=== PATIENT | male | born 1990 | race Caucasian/White ===

== ENCOUNTER → 2017-08-21 | Outpatient (CLI) | payer BC | LOC: M OUTALCOH 08:46 | DX: F10.10 Alcohol abuse, uncomplicated (principal); F12.10 Cannabis abuse, uncomplicated ==

== ENCOUNTER 2017-08-29 10:19 | Outpatient (RCR) | payer BC | END 2017-09-25 | LOC: M OUTALCOH 09-11 16:00 | DX: F10.10 Alcohol abuse, uncomplicated (principal); F12.10 Cannabis abuse, uncomplicated; F17.200 Nicotine dependence, unspecified, uncomplicated ==

== ENCOUNTER 2017-09-26 15:36 | Outpatient (RCR) | payer BC | END 2017-10-23 | LOC: M OUTALCOH 15:36 | DX: F10.10 Alcohol abuse, uncomplicated (principal); F12.10 Cannabis abuse, uncomplicated; F17.200 Nicotine dependence, unspecified, uncomplicated ==

== ENCOUNTER → 2019-10-07 | Outpatient (CLI) | payer OTHER ==
[2019-10-07 10:09] LABS: HEMATOCRIT 39.7 % (42.0-52.0); HEMOGLOBIN 13.3 g/dl (13.5-17.5); MEAN CORPUSCULAR HEMOGLOBIN 30.7 pg (27.0-33.0); MEAN CORPUSCULAR HGB CONC 33.5 g/dl (32.0-36.5); MEAN CORPUSCULAR VOLUME 91.7 fl (80.0-96.0); PLATELET COUNT, AUTOMATED 325 10^3/uL (150-450); RED BLOOD COUNT 4.33 10^6/uL (4.30-6.10); WHITE BLOOD COUNT 8.1 10^3/uL (4.0-10.0)
[2019-10-07 10:36] LABS: ALBUMIN 3.6 GM/DL (3.2-5.2); ALT/SGPT 422 U/L (12-78); BILIRUBIN,TOTAL 0.3 MG/DL (0.2-1.0); BLOOD UREA NITROGEN 25 MG/DL (7-18); CALCIUM LEVEL 9.3 MG/DL (8.5-10.1); CARBON DIOXIDE LEVEL 31 MEQ/L (21-32); CHLORIDE LEVEL 105 MEQ/L (98-107); CREATININE FOR GFR 0.95 MG/DL (0.70-1.30); GLOMERULAR FILTRATION RATE > 60.0 (>60); GLUCOSE, FASTING 109 MG/DL (70-100); POTASSIUM SERUM 4.3 MEQ/L (3.5-5.1); SODIUM LEVEL 140 MEQ/L (136-145); TOTAL PROTEIN 6.8 GM/DL (6.4-8.2)
[2019-10-07 11:12] LABS: HEPATITIS B SURFACE ANTIGEN NEGATIVE (NEGATIVE)
[2019-10-07 11:40] LABS: HIV 1&2 SCREEN CENTAUR NEGATIVE (NEGATIVE)
[2019-10-07 11:51] LABS: CHLAMYDIA DNA AMPLIFICATION NEGATIVE (NEGATIVE); GC DNA AMPLIFICATION NEGATIVE (NEGATIVE)
[2019-10-07 12:01] LABS: HEPATITIS C VIRUS ABY INDEX > 11.0 INDEX (<0.8)
--- NOTE | 2019-10-07 12:13 | ECGEPIP ---
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
== END ==
LOC: M LAB 09:21
PROVIDERS: ATTEND Family Medicine
DX: F11.20 Opioid dependence, uncomplicated (principal)

== ENCOUNTER 2020-01-08 02:23 | Emergency (ER) | payer OTHER, SELFPAY ==
[~2020-01-08] VITALS: Ht 175.3 cm; Wt 59.1 kg
[2020-01-08 02:23] VITALS: BP 121/76
[2020-01-08] MEDS ORDERED: SULF1TAB93 (02:31)
--- NOTE | 2020-01-08 05:52 | REP ---
Clinical: Trauma. Technique: AP, lateral views of the left forearm. Findings: Evidence for prior fracture and fixation involving the humeral condyle. The osseous structures and joint spaces are otherwise intact and normal. There is no evidence for acute fracture or dislocation. Surrounding soft tissues are unremarkable. No subcutaneous emphysema or radiodense foreign body. Impression: No acute fracture or dislocation. Electronically Signed by Elías Blue MD 01/08/2020 05:42 A
== END 2020-01-08 03:10 | disposition home or self-care (01) ==
LOC: M ED 02:23
DX: S50.12XA Contusion of left forearm, initial encounter (principal); X58.XXXA Exposure to other specified factors, initial encounter; Y92.89 Other specified places as the place of occurrence of the external cause; Y99.0 Civilian activity done for income or pay

== ENCOUNTER 2020-04-25 21:15 | Emergency (ER) | payer OTHER ==
[~2020-04-25] VITALS: Ht 175.3 cm; Wt 59.1 kg
[2020-04-25 21:15] VITALS: BP 123/76
[~2020-04-25 21:15] MED LIST: SULF1TAB93
[2020-04-26] MEDS ORDERED: MOBI4TAB PO (00:29)
[2020-04-26] MEDS ORDERED: ZANA4TAB PO (00:36)
--- NOTE | 2020-05-20 15:10 | REP ---
RIGHT HIP SERIES CLINICAL: Hip pain. TECHNIQUE: AP and five lateral views of the right hip. FINDINGS: Osseous structures, joint spaces, and surrounding soft tissues are normal and age appropriate. No acute fracture or dislocation. No arthritic changes. No subcutaneous emphysema or foreign body. IMPRESSION: Normal right hip series. MTDD
== END 2020-04-26 00:51 | disposition home or self-care (01) ==
LOC: M ED 21:15
DX: M25.551 Pain in right hip (principal); F17.210 Nicotine dependence, cigarettes, uncomplicated

== ENCOUNTER 2021-05-29 21:05 | Inpatient (IN) | payer OTHER ==
[~2021-05-29] VITALS: Ht 175.3 cm; Wt 63.0 kg
[~2021-05-29 21:05] MED LIST changes: +BACTDSTA; +MOBI4TAB PO; -SULF1TAB93; +ZANA4TAB PO
[2021-05-29 21:44] LABS: BASO # 0.2 10^3/uL (0.0-0.2); BASO % 0.5 % (0.0-1.0); EOS % 0.1 % (0.0-3.0); HEMATOCRIT 43.3 % (42.0-52.0); HEMOGLOBIN 14.9 g/dl (13.5-17.5); LYMPH # 1.8 10^3/uL (1.5-5.0); LYMPH % 4.7 % (24.0-44.0); MEAN CORPUSCULAR HEMOGLOBIN 31.2 pg (27.0-33.0); MEAN CORPUSCULAR HGB CONC 34.4 g/dl (32.0-36.5); MEAN CORPUSCULAR VOLUME 90.6 fl (80.0-96.0); MONO # 1.6 10^3/uL (0.0-0.8); MONO % 4.2 % (2.0-8.0); NEUTROPHILS # 32.7 10^3/uL (1.5-8.5); NEUTROPHILS % 87.2 % (36.0-66.0); PLATELET COUNT, AUTOMATED 364 10^3/uL (150-450); RED BLOOD COUNT 4.78 10^6/uL (4.30-6.10)
[2021-05-29 21:46] LABS: WHITE BLOOD COUNT 37.5 10^3/uL (4.0-10.0)
[2021-05-29] MEDS ORDERED: NS 1,000 ML IV ONE (21:55)
[2021-05-29] MEDS ORDERED: ISOVUE-370 76% 100ML VIAL As Ordered ONE (21:58)
[2021-05-29 22:18] LABS: ACETAMINOPHEN LEVEL < 2.0 UG/ML (10.0-30.0); ALBUMIN 4.1 GM/DL (3.2-5.2); ALT/SGPT 192 U/L (12-78); BILIRUBIN,DIRECT 0.1 MG/DL (0.0-0.2); BILIRUBIN,TOTAL 0.4 MG/DL (0.2-1.0); CPK CREATINE PHOSPHOKINASE 149 U/L (39-308); ETHYL ALCOHOL (ETHANOL) < 0.003 % (0.000-0.010); SALICYLATE LEVEL < 1.7 MG/DL (5.0-30.0); TOTAL PROTEIN 7.9 GM/DL (6.4-8.2)
[2021-05-29] MEDS ORDERED: ONDANSETRON 4MG/2ML VIAL IV ONE (22:20)
--- NOTE | 2021-05-29 23:50 | REPVR ---
PROCEDURE INFORMATION: Exam: XR Chest Exam date and time: 05/29/2021 9:43 PM Age: 31 years old Clinical indication: Drug overdose. Status post cardiopulmonary resuscitation. TECHNIQUE: Imaging protocol: XR of the chest. Views: 1 view. COMPARISON: CT ANGIO CHEST 05/29/2021 10:07:15 PM FINDINGS: Lungs: There are ground-glass opacities in the right lower lobe and left upper lobe and ground-glass opacities and patchy airspace consolidation in the left lower lobe, which are better appreciated in the CTA chest on 05/29/2021. Pleural spaces: Unremarkable. No pleural effusion. No pneumothorax. Heart/Mediastinum: Unremarkable. No cardiomegaly. Bones/joints: There are acute buckle fractures involving the anterior and anterolateral portions of the left 2nd and 3rd ribs. There is also an acute nondisplaced fracture involving the anterior cortex of the sternum. There are healing fractures of the right lateral 10th rib and right posterolateral 11th rib. These findings are better appreciated in the CTA chest on 05/29/2021. IMPRESSION: 1. Ground-glass opacities in the right lower lobe and left upper lobe and ground-glass opacities and patchy airspace consolidation in the left lower lobe, which are better appreciated in the CTA chest on 05/29/2021 and may be infectious or inflammatory in nature. Aspiration pneumonia should be considered. 2. Acute nondisplaced fracture involving the anterior cortex of the sternum, which is better appreciated in the CTA chest on 05/29/2021. 3. Acute buckle fractures involving the anterior and anterolateral portions of the left 2nd and 3rd ribs, which are better appreciated in the CTA chest on 05/29/2021. 4. Healing fractures of the right lateral 10th rib and right posterolateral 11th rib, which are better appreciated in the CTA chest on 05/29/2021. Electronically signed by: Hamlet Araujo On 05/29/2021 23:49:45 PM
--- NOTE | 2021-05-29 23:51 | REPVR ---
PROCEDURE INFORMATION: Exam: CTA Chest With Contrast Exam date and time: 05/29/2021 10:35 PM Age: 31 years old Clinical indication: Sternal or substernal pain; Additional info: Chest pain; S/P cardiopulmonary resuscitation TECHNIQUE: Imaging protocol: Computed tomographic angiography of the chest with contrast. 3D rendering (Not supervised by radiologist): MIP and/or 3D reconstructed images were created by the technologist. Radiation optimization: All CT scans at this facility use at least one of these dose optimization techniques: automated exposure control; mA and/or kV adjustment per patient size (includes targeted exams where dose is matched to clinical indication); or iterative reconstruction. Contrast material: ISOVUE 370; Contrast volume: 75 ml; Contrast route: INTRAVENOUS (IV); COMPARISON: CR PORTABLE CHEST X-RAY 05/29/2021 9:32 PM FINDINGS: Pulmonary arteries: No pulmonary embolism is identified. Aorta: The thoracic aorta is intact and patent. There is no thoracic aortic aneurysm, pseudoaneurysm, penetrating atherosclerotic ulcer, intramural hematoma, or dissection. Great vessels off aortic arch: The brachiocephalic artery, imaged proximal portions of the common carotid arteries, imaged proximal portions of the vertebral arteries, and subclavian arteries are intact. No stenosis or occlusion of these vessels is noted. Trachea: Normal. Bronchial tree: Normal. Lungs: There are ground-glass opacities in the right lower lobe and left upper lobe. There are ground-glass opacities and patchy airspace consolidation in the left lower lobe. Pleural spaces: Normal. No pneumothorax or pleural effusion. Heart: No cardiomegaly or pericardial effusion. The ratio of the diameter of the right ventricle to the diameter of the left ventricle measures less than 1, which is within normal limits and there is no CT evidence for a right ventricular strain. Mediastinal space: No mediastinal mass, fluid collection, or pneumomediastinum. Incidental note is made of residual thymic tissue in the anterior mediastinum. Lymph nodes: Normal. No enlarged lymph nodes. Diaphragm: Intact. Liver: The attenuation of the liver is more than 40 Hounsfield units lower in attenuation compared to the spleen, which is compatible with fatty liver infiltration. No liver lesion is identified. The contour of the liver is smooth. No hepatomegaly is noted. Gallbladder and bile ducts: No calcified gallstones are noted. No gallbladder wall thickening, pericholecystic fluid, or pericholecystic inflammatory changes are identified. No dilation of the bile ducts is noted. No calcified stones are seen in the common bile duct. Spleen: The spleen is heterogeneous in appearance, which is likely secondary to the arterial timing of the contrast bolus. No splenomegaly. Incidental note is made of a small accessory spleen. Adrenal glands: Normal. No adrenal mass is noted. Kidneys and ureters: There is left renal cortical scarring. No hydronephrosis is noted. The inferior portion of the right kidney was not imaged. Bones/joints: There are acute buckle fractures involving the anterior and anterolateral portions of the left 2nd and 3rd ribs. There is also an acute nondisplaced fracture involving the anterior cortex of the sternum. There are healing fractures of the right lateral 10th rib and right posterolateral 11th rib. There is a chronic ununited fracture of the right transverse process L2. No other fractures are noted. Soft tissues: Unremarkable. IMPRESSION: 1. No pulmonary embolism. 2. Ground-glass opacities in the right lower lobe, left upper lobe, and left lower lobe and patchy consolidation in the left lower lobe, which may be infectious or inflammatory in nature. Aspiration pneumonia should be considered. 3. Acute nondisplaced fracture involving the anterior cortex of the sternum. 4. Acute buckle fractures involving the anterior and anterolateral portions of the left 2nd and 3rd ribs. 5. Healing fractures of the right lateral 10th rib and right posterolateral 11th rib. 6. 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 7. Fatty liver. Electronically signed by: Hamlet Araujo On 05/29/2021 23:50:37 PM
[2021-05-30] MEDS ORDERED: HOME MED LIST COMPLETE! XX SCH (00:10)
[2021-05-30] MEDS ORDERED: LevoFLOXacin IV 750 MG in IV 1 EA IV ONE (00:40)
[2021-05-30] MEDS ORDERED: PIPERACILLIN/TAZOBACTAM SOD 4.5 GM in D5W MINI-BAG PLUS 50 ML IV ONE (00:40)
[2021-05-30] MEDS ORDERED: MAALOX 30 ML SUSP *UDC PO PRN (00:55)
[2021-05-30] MEDS ORDERED: MOM 30ML SUSPENSION UDC PO PRN (00:55)
[2021-05-30] MEDS ORDERED: ACETAMINOPHEN TAB 650MG DOSE (2X325MG) PO PRN (00:55)
[2021-05-30 01:44] LABS: RSV AMPLIFICATION NEGATIVE (NEGATIVE)
--- NOTE | 2021-05-30 01:59 | HPEPDOC ---
[facility] Medical History & Physical Date of Admission May 30, 2021 Date of Service: May 30, 2021 History and Physical CHIEF COMPLAINT: chest wall pain HISTORY OF PRESENT ILLNESS: Patient is a 31-year-old male with a history of opiate use disorder in the past, brought in by EMS after 20 minutes of CPR in the field after patient's parents found him unresponsive in their home. Patient states he snorted heroin after he had been abstinent for approximately 1 year. Patient stated to ER staff upon waking up that he wished he . At this time patient reports left-sided chest pain with deep inspiration. Patient chest x-ray showed consolidation in the left lower lobe concerning for aspiration pneumonia. Also seen on x-ray ER nondisplaced fracture involving the anterior cortex of the sternum, as well as acute buckle fractures involving anterior anterolateral portions of left second and third ribs. He has chronic healing rib fractures of the right lateral 10th rib and right posterolateral 11th rib. These fractures are redemonstrated on CT angiogram of the chest. Groundglass opacities are seen in the right lower lobe left upper lobe and left lower lobe along with patchy consolidation left lower lobe concerning for aspiration pneumonia. Patient WBC of 37.5 with neutrophil predominance. Patient is afebrile but has a tachycardia to 110. BP is elevated to 140/80 with a saturation of 90% room air. Patient admitted to hospitalist service for pain control as well as treatment of aspiration pneumonia. He will be given a one-to-one sitter for suicidal intent concerns. Even tachycardia and left-sided chest wall pain and echo will be performed to rule out cardiac contusion. PAST MEDICAL HISTORY: opiate use disorder PAST SURGICAL HISTORY: numerous orthopedic surgeries to repair fractures in bilateral upper extremities appendectomy SOCIAL HISTORY: hx of opiate use disorder, including injection denies smoking, denies etoh use lives with parents FAMILY HISTORY: reviewed with patient, no pertinent history reported ALLERGIES: Please see below. REVIEW OF SYSTEMS: 10 point ROS conducted, relevant findings are noted in HPI HOME MEDICATIONS: Please see below. PHYSICAL EXAMINATION: VITAL SIGNS: please see below General: NAD, comfortable HEENT: PERRLA, EOMI, sclerae clear Neck: supple, normal ROM, no JVD Respiratory: lungs CTAB, no wheeze, no rales, no crackles CVS: RRR, normal S1, S2, no murmurs Abdo: soft, no masses, no hepatosplenomegaly, BS+, no rebound tenderness Extremities: no edema, pulses 2+ MSK: L chest wall overlying L 3rd rib, no joint deformities, normal ROM Neuro: no focal neuro deficits, moving all 4 extremities, CN2-12 intact. Strength 5/5 in all 4 extremities. No nystagmus. Psych: calm, cooperative, AAO x 3 LABORATORY DATA: See below. IMAGING: CTA Chest (05/29/21): 1. No pulmonary embolism. 2. Ground-glass opacities in the right lower lobe, left upper lobe, and left lower lobe and patchy consolidation in the left lower lobe, which may be infectious or inflammatory in nature. Aspiration pneumonia should be considered. 3. Acute nondisplaced fracture involving the anterior cortex of the sternum. 4. Acute buckle fractures involving the anterior and anterolateral portions of the left 2nd and 3rd ribs. 5. Healing fractures of the right lateral 10th rib and right posterolateral 11th rib. 6. 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 7. Fatty liver. CXR (05/29/21): 1. Ground-glass opacities in the right lower lobe and left upper lobe and ground-glass opacities and patchy airspace consolidation in the left lower lobe, which are better appreciated in the CTA chest on 05/29/2021 and may be infectious or inflammatory in nature. Aspiration pneumonia should be considered. 2. Acute nondisplaced fracture involving the anterior cortex of the sternum, which is better appreciated in the CTA chest on 05/29/2021. 3. Acute buckle fractures involving the anterior and anterolateral portions of the left 2nd and 3rd ribs, which are better appreciated in the CTA chest on 05/29/2021. 4. Healing fractures of the right lateral 10th rib and right posterolateral 11th rib, which are better appreciated in the CTA chest on 05/29/2021. MICROBIOLOGY: Please see below. ASSESSMENT: Patient is a 31-year-old male with a history of opiate use disorder in the past, brought in by EMS after 20 minutes of CPR in the field after patient's parents found him unresponsive in their home. Patient admitted for pain management for rib fractures as well as aspiration pneumonia. Will obtain echo to rule out cardiac contusion. . PLAN: Heroin overdose: s/p narcan in field. s/p 20 min CPR. Monitor vitals. continuous cardiac monitoring. administrative services director consulted. L chest wall pain/trauma: rib fractures noted on CXR and CT. No signs of pulmonary contusion on imaging. ER d/w Dr. Portillo. Recommending incentive spiromertry, antibiotics and pain control. Sinus tachycardia: EKG showing LBBB. Chest pain is MSK in nature 2/2 rib fx. Obtain 2D echo to r/o cardiac contusion. Trend troponins. Aspiration pneumonia in setting of drug overdose: numerous opacities on CT imaging. WBC 37.5. Given levaquin and zosyn in ER. Continue same regimen. Check blood cultures. Check procal. Tylenol prn for fevers. c/w IS. Carla burns. Suicidal ideation: 1:1 sitter. Day team to consult psychiatry in AM. DVT ppx: SCDs. TEDs. Vital Signs Vital Signs Date Time Temp Pulse Resp B/P (MAP) Pulse Ox O2 Delivery O2 Flow Rate FiO2 05/30/21 00:35 110 95 05/30/21 00:30 16 146/77 (100) Room Air 05/29/21 21:35 98.0 Laboratory Data Labs 24H Laboratory Tests 2 05/29/21 21:21: Immature Granulocyte % (Auto) 3.3H, Neutrophils (%) (Auto) 87.2H, Lymphocytes (%) (Auto) 4.7L, Monocytes (%) (Auto) 4.2, Eosinophils (%) (Auto) 0.1, Basophils (%) (Auto) 0.5, Neutrophils # (Auto) 32.7H, Lymphocytes # (Auto) 1.8, Monocytes # (Auto) 1.6H, Eosinophils # (Auto) 0.0, Basophils # (Auto) 0.2, Nucleated Red Blood Cells % (auto) 0.0, Total Bilirubin 0.4, Direct Bilirubin 0.1, Aspartate Amino Transf (AST/SGOT) 86H, Alanine Aminotransferase (ALT/SGPT) 192H, Alkaline Phosphatase 133H, Total Creatine Kinase 149, Total Protein 7.9, Albumin 4.1, Albumin/Globulin Ratio 1.1, Thyroid Stimulating Hormone (TSH) 1.470, Salicylates Level < 1.7L, Acetaminophen Level < 2.0L, Ethyl Alcohol Level < 0.003 05/29/21 21:47: POC Glucose (Misc Panel) 220H, POC Sodium (Misc Panel) 139, POC Potassium (Misc Panel) 4.3, POC Chloride (Misc Panel) 104, POC Total CO2 (Misc Panel) 23.0, POC Blood Urea Nitrogen (Misc Panel 28H, POC Ionized Calcium (Misc Panel) 4.4L, POC Creatinine (Misc Panel) 1.2, POC Hematocrit (Misc Panel) 40.0 05/30/21 00:06: CBC/BMP Laboratory Tests 05/29/21 21:21 Home Medications No Active Prescriptions or Reported Meds Allergies Coded Allergies: No Known Allergies (Verified , 03/01/03) DOMITILA LARES MD May 30, 2021 01:59
[2021-05-30] MEDS ORDERED: BENZONATATE 100MG CAPSULE PO PRN (02:00)
[2021-05-30 02:16] LABS: TROPONIN I < 0.02 NG/ML (< 0.10)
[2021-05-30 02:26] VITALS: BP 146/71
[2021-05-30 03:45] LABS: BASO % 0.1 % (0.0-1.0); HEMATOCRIT 37.8 % (42.0-52.0); HEMOGLOBIN 13.1 g/dl (13.5-17.5); LYMPH % 3.9 % (24.0-44.0); MEAN CORPUSCULAR HEMOGLOBIN 31.2 pg (27.0-33.0); MEAN CORPUSCULAR HGB CONC 34.7 g/dl (32.0-36.5); MONO # 1.3 10^3/uL (0.0-0.8); MONO % 5.4 % (2.0-8.0); NEUTROPHILS # 22.1 10^3/uL (1.5-8.5); NEUTROPHILS % 90.2 % (36.0-66.0); PLATELET COUNT, AUTOMATED 288 10^3/uL (150-450); WHITE BLOOD COUNT 24.5 10^3/uL (4.0-10.0)
[2021-05-30 05:30] VITALS: BP 124/58
[2021-05-30 05:35] LABS: AMPHETAMINES LEVEL URINE NEGATIVE (NEGATIVE); BARBITURATES URINE NEGATIVE (NEGATIVE); BENZODIAZEPINES URINE NEGATIVE (NEGATIVE); CANNABINOIDS URINE POSITIVE (NEGATIVE); COCAINE METABOLITE URINE NEGATIVE (NEGATIVE); METHADONE URINE NEGATIVE (NEGATIVE); OPIATES URINE POSITIVE (NEGATIVE); PHENCYCLIDINE URINE NEGATIVE (NEGATIVE)
[2021-05-30 05:45] LABS: ALBUMIN 3.8 GM/DL (3.2-5.2); ALT/SGPT 167 U/L (12-78); BILIRUBIN,TOTAL 0.6 MG/DL (0.2-1.0); BLOOD UREA NITROGEN 20 MG/DL (7-18); CALCIUM LEVEL 8.7 MG/DL (8.5-10.1); CARBON DIOXIDE LEVEL 22 MEQ/L (21-32); CHLORIDE LEVEL 107 MEQ/L (98-107); CREATININE FOR GFR 1.06 MG/DL (0.70-1.30); GLOMERULAR FILTRATION RATE > 60.0 (>60); GLUCOSE, FASTING 124 MG/DL (70-100); MAGNESIUM LEVEL 1.9 MG/DL (1.8-2.4); POTASSIUM SERUM 4.4 MEQ/L (3.5-5.1); SODIUM LEVEL 141 MEQ/L (136-145); TOTAL PROTEIN 7.2 GM/DL (6.4-8.2); TROPONIN I 0.04 NG/ML (< 0.10)
[2021-05-30] MEDS: PIPERACILLIN/TAZOBACTAM SOD 4.5 GM in D5W MINI-BAG PLUS 50 ML IV SCH ×4 (07:40→23:35)
[2021-05-30] MEDS: PERCOCET 5MG/325MG TAB PO PRN ×2 (07:52→23:36)
[2021-05-30 08:01] VITALS: BP 131/75
[2021-05-30 08:39] LABS: NT-PRO BNP 173 PG/ML (<125)
[2021-05-30 12:00] VITALS: BP 126/73
[2021-05-30 16:13] VITALS: BP 123/73
--- NOTE | 2021-05-30 16:55 | IPNPDOC ---
Date Seen The patient was seen on 05/30/21. Progress Note SUBJECTIVE: Awake alert oriented 3. Denies homicidal or suicidal ideation prior to this event. Will reach out to psychiatry to discuss case. Denies chest pain, shortness of breath and is unremarkable OBJECTIVE: VITAL SIGNS: Please see below PHYSICAL EXAMINATION: VITAL SIGNS: please see below General: NAD, comfortable sitting up in bed HEENT: PERRLA, EOMI, sclerae clear Neck: supple, normal ROM, no JVD Respiratory: lungs CTAB, no wheeze, no rales, no crackles CVS: RRR, normal S1, S2, no murmurs Abdo: soft, no masses, no hepatosplenomegaly, BS+, no rebound tenderness Extremities: no edema, pulses 2+ MSK: L chest wall overlying L 3rd rib, pain on palpation of sternum Neuro: no focal neuro deficits, moving all 4 extremities, CN2-12 intact. Strength 5/5 in all 4 extremities. No nystagmus. Psych: calm, cooperative, AAO x 3 CURRENT MEDICATIONS: Please see below LABORATORY DATA: Please see below IMAGING: no new MICRO: Blood cultures pending x 2 sets Sputum cx ordered ASSESSMENT: 31-year-old male admitted for heroin overdose, left wall trauma/rib fractures, aspiration PNA, suicidal ideation. PLAN: 1. Heroin overdose s/p narcan -Awake alert, oriented 3 and cooperative. Eating well and ambulating. -No events on telemetry overnight -Patient states he does not use regularly, that he overindulged an overdose this one time -No signs or symptoms of withdrawal, monitor closely. 2. L chest wall pain/trauma with rib fractures, nondisplaced sternal fracture -C/w incentive spiromertry, pain control PRN 3. Aspiration pneumonia in setting of drug overdose -Numerous opacities on CT imaging -Afebrile, WBC 37.5K--> 24K -C/w levaquin , zosyn, IS, Tylenol prn for fevers. -F/u blood cultures, procal, sputum culture if able to produce 4. Transaminitis likely 2/2 to drug abuse but cannot r/o hepatitis with drug use -AST/ALT incr -Monitor with CMP, hepatitis panel 5. LBBB on ECG -With hx of heroin use, consider underlying cardiac issues -F/u echo 6. Sinus tachycardia likely 2/2 to overdose, dehydration- resolved -HR improved -ECG LBBB -C/w IVFs until 05/30/21 -If returns consider uncontrolled pain vs. withdrawl -F/u echocardiogram 7. Suicidal ideation -Psych consulted. -C/w 1:1 sitter. 8. DVT ppx -Lovenox DISPOSITION: Psych consulted. Plan undetermined for discharge at this time. VS, I&O, 24H, Fishbone Vital Signs/I&O Vital Signs Date Time Temp Pulse Resp B/P (MAP) Pulse Ox O2 Delivery O2 Flow Rate FiO2 05/30/21 16:13 98.7 73 16 123/73 (90) 91 Room Air I&O- Last 24 Hours up to 6 AM 05/30/21 06:00 Intake Total 1250 ml Output Total 800 ml Balance 450 ml Laboratory Data 24H LABS Laboratory Tests 2 05/29/21 21:21: Immature Granulocyte % (Auto) 3.3H, Neutrophils (%) (Auto) 87.2H, Lymphocytes (%) (Auto) 4.7L, Monocytes (%) (Auto) 4.2, Eosinophils (%) (Auto) 0.1, Basophils (%) (Auto) 0.5, Neutrophils # (Auto) 32.7H, Lymphocytes # (Auto) 1.8, Monocytes # (Auto) 1.6H, Eosinophils # (Auto) 0.0, Basophils # (Auto) 0.2, Nucleated Red Blood Cells % (auto) 0.0, Total Bilirubin 0.4, Direct Bilirubin 0.1, Aspartate Amino Transf (AST/SGOT) 86H, Alanine Aminotransferase (ALT/SGPT) 192H, Alkaline Phosphatase 133H, Total Creatine Kinase 149, Troponin I < 0.02, Total Protein 7.9, Albumin 4.1, Albumin/Globulin Ratio 1.1, Thyroid Stimulating Hormone (TSH) 1.470, Salicylates Level < 1.7L, Acetaminophen Level < 2.0L, Ethyl Alcohol Level < 0.003 05/29/21 21:47: POC Glucose (Misc Panel) 220H, POC Sodium (Misc Panel) 139, POC Potassium (Misc Panel) 4.3, POC Chloride (Misc Panel) 104, POC Total CO2 (Misc Panel) 23.0, POC Blood Urea Nitrogen (Misc Panel 28H, POC Ionized Calcium (Misc Panel) 4.4L, POC Creatinine (Misc Panel) 1.2, POC Hematocrit (Misc Panel) 40.0 05/30/21 00:06: Coronavirus (COVID-19)(PCR) NEGATIVE, Influenza Type A (RT-PCR) NEGATIVE, Influenza Type B (RT-PCR) NEGATIVE, Respiratory Syncytial Virus (PCR) NEGATIVE 05/30/21 03:36: Immature Granulocyte % (Auto) 0.4, Neutrophils (%) (Auto) 90.2H, Lymphocytes (%) (Auto) 3.9L, Monocytes (%) (Auto) 5.4, Eosinophils (%) (Auto) 0.0, Basophils (%) (Auto) 0.1, Neutrophils # (Auto) 22.1H, Lymphocytes # (Auto) 1.0L, Monocytes # (Auto) 1.3H, Eosinophils # (Auto) 0.0, Basophils # (Auto) 0.0, Nucleated Red Blood Cells % (auto) 0.0, Total Bilirubin 0.6, Aspartate Amino Transf (AST/SGOT) 64H, Alanine Aminotransferase (ALT/SGPT) 167H, Alkaline Phosphatase 106, Trop onin I 0.04#, Total Protein 7.2, Albumin 3.8, Albumin/Globulin Ratio 1.1, Anion Gap 12, Glomerular Filtration Rate > 60.0, Lactic Acid Level 1.5, Calcium Level 8.7, Magnesium Level 1.9, QC-Orn-L-Type Natriuretic Peptide 173H 05/30/21 03:49: Urine Opiates Screen POSITIVEH, Urine Methadone Screen NEGATIVE, Urine Barbiturates Screen NEGATIVE, Urine Phencyclidine Screen NEGATIVE, Urine Amphetamines Screen NEGATIVE, Urine Benzodiazepines Screen NEGATIVE, Urine Cocaine Metabolite Screen NEGATIVE, Urine Cannabinoids Screen POSITIVEH CBC/BMP Laboratory Tests 05/29/21 21:21 05/30/21 03:36 Microbiology Microbiology 05/30/21 Blood Culture, Received Pending 05/30/21 Blood Culture, Received Pending Current Medications Current Medications Medications (Trade) Dose Ordered Sig/Justus Route PRN Reason Start Time Stop Time Status Last Admin Dose Admin Acetaminophen (Tylenol Tab) 650 mg Q4H PRN PO MILD PAIN or TEMP > 101 05/30/21 00:55 Al Hydrox/Mg Hydrox/Simethicone (Mylanta) 30 ml DAILY PRN PO DYSPEPSIA 05/30/21 00:55 Benzonatate (Tessalon Perles) 100 mg TIDP PRN PO COUGH 05/30/21 02:00 Home Med (Home Med List Complete!) ASDIRECTED XX 05/30/21 00:10 05/30/21 00:08 DC Levofloxacin 750 mg/IV Miscellaneous Supplies 150 ml @ 100 mls/hr Q24H IV 05/30/21 21:00 Magnesium Hydroxide (Milk Of Magnesia) 30 ml DAILY PRN PO CONSTIPATION 05/30/21 00:55 Oxycodone/ Acetaminophen (Percocet 5mg/ 325mg Tablet) 1 tab Q6HP PRN PO MODERATE PAIN (PS 5-7) 05/30/21 01:40 05/30/21 07:52 Piperacillin Sod/ Tazobactam Sod 4.5 gm/Dextrose 50 ml @ 50 mls/hr Q6H IV 05/30/21 06:00 05/30/21 12:46 Allergies Coded Allergies: No Known Allergies (Verified , 03/01/03) Zoraida Santos MD May 30, 2021 16:55
[2021-05-30 17:54] LABS: HEPATITIS B SURFACE ANTIGEN NEGATIVE (NEGATIVE)
[2021-05-30 18:22] LABS: HEPATITIS B CORE ANTIBODY IGM NEGATIVE (NEGATIVE)
[2021-05-30 18:24] LABS: HEPATITIS A ANTIBODY IGM NEGATIVE (NEGATIVE)
[2021-05-30 18:48] LABS: HEPATITIS C VIRUS ABY INDEX > 11.0 INDEX (<0.8)
[2021-05-30 20:00] VITALS: BP 134/88
--- NOTE | 2021-05-30 20:48 | ECHO ---
ECHOCARDIOGRAM DATE OF PROCEDURE: 05/30/2021 Age: Gender: Height: 175 cm Weight: 64 kg REFERRING PHYSICIAN: Dr. Varma INDICATION: Chest pain, history of cardiac arrest. MEASUREMENTS: IVS 0.9 LV 4.6 LVPW 0.9 LA 3.3 Aorta 2.8 IVC 2.4 Mitral E-wave velocity 100, A-wave 79 E prime septal 10.0 E prime lateral 15.2 FINDINGS: The study is of excellent technical quality. Underlying sinus rhythm. Normal LV size with normal LV systolic function. Estimated LVEF 65%-70%. No segmental wall motion abnormalities are noted. Normal RV size and systolic function. Both atria appear normal. All four cardiac valves were well seen and appear normal. No pericardial effusion is noted. Inferior vena cava is dilated, and there is limited collapse with inspiration, indicative of high central venous pressure. Aortic root and aortic arch appear normal. Abdominal aorta was not well seen. Doppler interrogation reveals competent aortic valve. There is trace mitral and trace tricuspid insufficiency. Calculated pulmonary artery pressure is at least in high 30s and probably low 40s. Trace pulmonic insufficiency is seen. Mitral inflow pattern and tissue Doppler imaging of mitral annulus revealed normal diastolic dysfunction. CONCLUSIONS: 1. Study is of excellent technical quality. Underlying sinus rhythm. 2. Normal LV size with normal LV systolic and diastolic function. 3. No significant valvular disease. 4. Elevated central venous pressure, and estimated pulmonary artery pressure around 40 mmHg. MTDD
[2021-05-30] MEDS ORDERED: LevoFLOXacin IV 750 MG in IV 1 EA IV SCH (21:00)
[2021-05-31] VITALS: BP 133/78
[2021-05-31 03:28] VITALS: BP 117/68
[2021-05-31] MEDS: PIPERACILLIN/TAZOBACTAM SOD 4.5 GM in D5W MINI-BAG PLUS 50 ML IV SCH (05:52)
[2021-05-31] MEDS ORDERED: LevoFLOXacin 500 MG TABLET PO SCH (06:00)
[2021-05-31 06:09] LABS: HEMOGLOBIN 13.6 g/dl (13.5-17.5); MEAN CORPUSCULAR HEMOGLOBIN 31.1 pg (27.0-33.0); MEAN CORPUSCULAR VOLUME 91.3 fl (80.0-96.0); PLATELET COUNT, AUTOMATED 258 10^3/uL (150-450); RED BLOOD COUNT 4.38 10^6/uL (4.30-6.10); WHITE BLOOD COUNT 9.7 10^3/uL (4.0-10.0)
[2021-05-31 06:35] LABS: ALBUMIN 3.2 GM/DL (3.2-5.2); ALT/SGPT 136 U/L (12-78); BILIRUBIN,TOTAL 0.7 MG/DL (0.2-1.0); BLOOD UREA NITROGEN 7 MG/DL (7-18); CALCIUM LEVEL 9.1 MG/DL (8.5-10.1); CARBON DIOXIDE LEVEL 28 MEQ/L (21-32); CHLORIDE LEVEL 107 MEQ/L (98-107); CREATININE FOR GFR 0.99 MG/DL (0.70-1.30); GLOMERULAR FILTRATION RATE > 60.0 (>60); GLUCOSE, FASTING 87 MG/DL (70-100); POTASSIUM SERUM 4.2 MEQ/L (3.5-5.1); SODIUM LEVEL 140 MEQ/L (136-145); TOTAL PROTEIN 6.8 GM/DL (6.4-8.2)
[2021-05-31 07:24] VITALS: BP 118/69
[2021-05-31 12:00] VITALS: BP 111/64
[2021-05-31] MEDS ORDERED: ACET1TAB55 PO (14:21)
[2021-05-31] MEDS ORDERED: LEVO500T3 PO (14:21)
--- NOTE | 2021-05-31 17:26 | ECGEPIP ---
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
--- NOTE | 2021-05-31 19:57 | DS.PDOC ---
Discharge Summary General Date of Admission May 30, 2021 at 00:54 Date of Discharge 05/31/21 Attending Physician: Zoraida Santos MD Discharge Summary HISTORY OF PRESENT ILLNESS: Patient is a 31-year-old male with a history of opiate use disorder in the past, brought in by EMS after 20 minutes of CPR in the field after patient's parents found him unresponsive in their home. Patient states he snorted heroin after he had been abstinent for approximately 1 year. Patient stated to ER staff upon waking up that he wished he . At this time patient reports left-sided chest pain with deep inspiration. Patient chest x- ray showed consolidation in the left lower lobe concerning for aspiration pneumonia. Also seen on x-ray ER nondisplaced fracture involving the anterior cortex of the sternum, as well as acute buckle fractures involving anterior anterolateral portions of left second and third ribs. He has chronic healing rib fractures of the right lateral 10th rib and right posterolateral 11th rib. These fractures are redemonstrated on CT angiogram of the chest. Groundglass opacities are seen in the right lower lobe left upper lobe and left lower lobe along with patchy consolidation left lower lobe concerning for aspiration pneumonia. Patient WBC of 37.5 with neutrophil predominance. Patient is afebrile but has a tachycardia to 110. BP is elevated to 140/80 with a saturation of 90% room air. Patient admitted to hospitalist service for pain control as well as treatment of aspiration pneumonia. He will be given a one-to-one sitter for suicidal intent concerns. Even tachycardia and left-sided chest wall pain and echo will be performed to rule out cardiac contusion. HOSPITAL COURSE: The day after admission the patient was awake, alert, oriented 3 and very cooperative. Echocardiogram was negative for abnormalities. WBC continued to trend down with treatment of aspiration pneumonia. Sputum culture was not able to be produced. He remained on room air and was ambulating freely without assistance. He did not complain of any left chest pain or difficulty breathing. He was able to eat and drink well and remains independent with activity. Transaminitis improved slowly over his hospitalization and he hydrated adequately. He displayed no signs and symptoms of heroin withdrawal. On 05/31/2021 the patient was evaluated by psychiatry due to his suicidal comments. They deemed him safe to be discharged home. On 05/31/2021 he was discharged home with follow-up with his primary care provider and encouraged to follow up with behavioral health. At the time of discharge she denied chest pain, nausea vomiting or diarrhea. He was discharged to complete a course of IV antibiotic treatment for pneumonia. PAST MEDICAL HISTORY: opiate use disorder PAST SURGICAL HISTORY: numerous orthopedic surgeries to repair fractures in bilateral upper extremities appendectomy SOCIAL HISTORY: hx of opiate use disorder, including injection denies smoking, denies etoh use lives with parents FAMILY HISTORY: reviewed with patient, no pertinent history reported ALLERGIES: Please see below. D/C MEDS: Please see below PHYSICAL EXAMINATION: VITAL SIGNS: please see below General: NAD, comfortable sitting up in bed HEENT: PERRLA, EOMI, sclerae clear Neck: supple, normal ROM, no JVD Respiratory: lungs CTAB, no wheeze, no rales, no crackles CVS: RRR, normal S1, S2, no murmurs Abdo: soft, no masses, no hepatosplenomegaly, BS+, no rebound tenderness Extremities: no edema, pulses 2+ MSK: L chest wall overlying L 3rd rib, pain on palpation of sternum Neuro: no focal neuro deficits, moving all 4 extremities, CN2-12 intact. Strength 5/5 in all 4 extremities. No nystagmus. Psych: calm, cooperative, AAO x 3 LABORATORY DATA: Please see below IMAGING: no new MICRO: Blood cultures: NG Sputum cx: unable to be produced ASSESSMENT: 31-year-old male admitted for heroin overdose, left wall trauma/rib fractures, aspiration PNA, suicidal ideation discharging home with f/u with PCP. PLAN: 1. Heroin overdose s/p narcan -Awake alert, oriented 3 and cooperative. Eating well and ambulating. -No events on telemetry -Patient states he does not use regularly, that he overindulged an overdose this one time -No signs or symptoms of withdrawal 2. L chest wall pain/trauma with rib fractures, nondisplaced sternal fracture -pain control PRN 3. Aspiration pneumonia in setting of drug overdose -Numerous opacities on CT imaging -Afebrile, WBC now wnl -C/w levaquin PO -Sputum cx not able to be produced -BCx NG 4. Transaminitis likely 2/2 to drug abuse but cannot r/o hepatitis with drug use -AST/ALT incr -Hep panel neg thus far, HCV test pending. Encourage PCP to f/u -Monitor with CMP as o/p 5. LBBB on ECG -With hx of heroin use, consider underlying cardiac cause from past -Trop neg -Echo unremarkable 6. Sinus tachycardia likely 2/2 to overdose, dehydration- resolved 7. Suicidal ideation -Psych consulted -Patient denies suicidal ideation currently -No need for inpatient admission DISPOSITION:D/c home today to f/u with PCP, behavioral health as o/p. TIME SPENT ON DISCHARGE: 35 minutes. Vital Signs/I&Os Vital Signs Date Time Temp Pulse Resp B/P (MAP) Pulse Ox O2 Delivery O2 Flow Rate FiO2 05/31/21 12:00 98.9 80 18 111/64 (80) 95 Room Air I&O- Last 24 Hours up to 6 AM 05/31/21 06:00 Intake Total 1520 ml Output Total 2850 ml Balance -1330 ml Laboratory Data Labs 24H Laboratory Tests 2 05/31/21 05:34: Nucleated Red Blood Cells % (auto) 0.0, Anion Gap 5L, Glomerular Filtration Rate > 60.0, Calcium Level 9.1, Total Bilirubin 0.7, Aspartate Amino Transf (AST/SGOT) 47H, Alanine Aminotransferase (ALT/SGPT) 136H, Alkaline Phosphatase 93, Total Protein 6.8, Albumin 3.2, Albumin/Globulin Ratio 0.9 CBC/BMP Laboratory Tests 05/31/21 05:34 Microbiology Microbiology 05/30/21 Blood Culture - Preliminary, Resulted No growth after 24 hours . All specim... 05/30/21 Blood Culture - Preliminary, Resulted No growth after 24 hours . All specim... Discharge Medications Scheduled Levofloxacin (Levofloxacin) 500 Mg Tablet, 500 MG PO DAILY@06 Scheduled PRN Acetaminophen (Acetaminophen) 325 Mg Tablet, 650 MG PO Q6HP PRN for MILD PAIN or TEMP > 101 Allergies Coded Allergies: No Known Allergies (Verified , 03/01/03) Zoraida Santos MD May 31, 2021 19:57
== END 2021-05-31 16:32 | disposition home or self-care (01) | DRG 816 ==
LOC: M ED 21:05 → M ED INP 05-30 00:54 → ENRESERV 05-30 01:51 → M PCU 05-30 02:25
PROVIDERS: ADMIT Family Medicine; ATTEND Internal Medicine
DX: T40.1X1A Poisoning by heroin, accidental (unintentional), initial encounter (principal); R74.01 Elevation of levels of liver transaminase levels; I44.7 Left bundle-branch block, unspecified; R00.0 Tachycardia, unspecified; J69.0 Pneumonitis due to inhalation of food and vomit; S22.42XA Multiple fractures of ribs, left side, initial encounter for closed fracture; S22.20XA Unspecified fracture of sternum, initial encounter for closed fracture; R45.851 Suicidal ideations; K76.0 Fatty (change of) liver, not elsewhere classified; X50.3XXA Overexertion from repetitive movements, initial encounter; Y92.009 Unspecified place in unspecified non-institutional (private) residence as the place of occurrence of the external cause

== ENCOUNTER → 2021-06-19 | Outpatient (CLI) | payer OTHER ==
[~2021-06-19] MED LIST changes: +ACET1TAB55 PO; +LEVO500T3 PO
[2021-06-19 15:01] LABS: HEPATITIS B SURFACE ANTIBODY POSITIVE (POSITIVE); HIV 1&2 SCREEN CENTAUR NEGATIVE (NEGATIVE)
[2021-06-22 01:15] LABS: HEPATITIS A IgG TOTAL Positive (Negative); HEPATITIS B CORE ANTIBODY IGG Negative (Negative); HEPATITIS C QUANTITATION 3380000 IU/mL (.); HEPATITIS C VIRUS GENOTYPE 3 (.)
== END ==
LOC: M PLALAB 09:22
PROVIDERS: ATTEND Internal Medicine Infectious Disease
DX: B18.2 Chronic viral hepatitis C (principal)

== ENCOUNTER 2021-09-16 00:15 | Emergency (ER) | payer OTHER ==
[~2021-09-16] VITALS: Ht 180.3 cm; Wt 64.7 kg
[~2021-09-16 00:15] MED LIST changes: -LEVO500T3 PO; +LEVO500T4 PO
[2021-09-16 02:41] VITALS: BP 139/76
== END 2021-09-16 02:44 | disposition home or self-care (01) ==
LOC: M ED 00:15
DX: S62.617A Displaced fracture of proximal phalanx of left little finger, initial encounter for closed fracture (principal); S00.03XA Contusion of scalp, initial encounter; F10.120 Alcohol abuse with intoxication, uncomplicated; F17.200 Nicotine dependence, unspecified, uncomplicated; F12.10 Cannabis abuse, uncomplicated; Y92.9 Unspecified place or not applicable; Y93.9 Activity, unspecified; Y99.9 Unspecified external cause status

== ENCOUNTER → 2021-09-20 | Outpatient (CLI) | payer OTHER | LOC: M SOG 14:27 | PROVIDERS: ATTEND Orthopaedic Surgery | DX: S62.646A Nondisplaced fracture of proximal phalanx of right little finger, initial encounter for closed fracture (principal); S63.253A Unspecified dislocation of left middle finger, initial encounter; S63.255A Unspecified dislocation of left ring finger, initial encounter; X58.XXXA Exposure to other specified factors, initial encounter; Y92.9 Unspecified place or not applicable; Y93.9 Activity, unspecified; Y99.9 Unspecified external cause status ==

== ENCOUNTER 2021-09-21 10:23 | Day surgery (SDC) | payer OTHER ==
[~2021-09-21] VITALS: Ht 175.3 cm; Wt 63.5 kg
[~2021-09-21 10:23] MED LIST changes: +LIDOCAINE 2% 100MG/5ML SDV (FOR ANES.) As Ordered ONE; +MIDAZOLAM INJ 2MG/2ML VIAL (J2250 PER 1MG) As Ordered ONE; +fentaNYL 100 MCG/2 ML INJECTION As Ordered ONE; +propofoL 200 MG/20 ML VIAL As Ordered ONE
[2021-09-21] MEDS ORDERED: BUPIVACAINE HCL 0.25% 30ML VIAL As Ordered ONE (12:47)
[2021-09-21] MEDS ORDERED: ceFAZolin 2 GM/D5W 50 ML IV BAG (J0690 PER 500MG) As Ordered ONE (12:49)
[2021-09-21] MEDS ORDERED: BACITRACIN OINTMENT 30GM TUBE As Ordered ONE (13:14)
[2021-09-21] MEDS ORDERED: KETOROLAC 60MG 2ML VIAL As Ordered ONE (13:27)
[2021-09-21 14:30] VITALS: BP 116/65
== END 2021-09-21 14:49 | disposition home or self-care (01) ==
LOC: M SDC 10:23
PROVIDERS: ATTEND Orthopaedic Surgery Hand Surgery
DX: S62.647A Nondisplaced fracture of proximal phalanx of left little finger, initial encounter for closed fracture (principal); S63.233A Subluxation of proximal interphalangeal joint of left middle finger, initial encounter; S63.234A Subluxation of proximal interphalangeal joint of right ring finger, initial encounter; V87.8XXA Person injured in other specified noncollision transport accidents involving motor vehicle (traffic), initial encounter; Y92.89 Other specified places as the place of occurrence of the external cause; Y93.9 Activity, unspecified; Y99.9 Unspecified external cause status; F15.90 Other stimulant use, unspecified, uncomplicated; F17.218 Nicotine dependence, cigarettes, with other nicotine-induced disorders
CPT/HCPCS: 26720; 26727; 76000; J0690; J1885; J2250; J3010

== ENCOUNTER → 2021-09-26 | Outpatient (CLI) | payer OTHER ==
[~2021-09-26] MED LIST changes: -LIDOCAINE 2% 100MG/5ML SDV (FOR ANES.) As Ordered ONE; -MIDAZOLAM INJ 2MG/2ML VIAL (J2250 PER 1MG) As Ordered ONE; -fentaNYL 100 MCG/2 ML INJECTION As Ordered ONE; -propofoL 200 MG/20 ML VIAL As Ordered ONE
== END ==
LOC: M SOG 09-25 13:23
PROVIDERS: ATTEND Orthopaedic Surgery Hand Surgery
DX: S62.647D Nondisplaced fracture of proximal phalanx of left little finger, subsequent encounter for fracture with routine healing (principal)

== ENCOUNTER → 2021-10-17 | Outpatient (CLI) | payer OTHER | LOC: M SOG 08:17 | PROVIDERS: ATTEND Orthopaedic Surgery Hand Surgery | DX: S63.29 Dislocation of distal interphalangeal joint of finger (principal) ==

== ENCOUNTER → 2021-11-14 | Outpatient (CLI) | payer OTHER | LOC: M SOG 09:21 | PROVIDERS: ATTEND Physician Assistant | DX: S63.29 Dislocation of distal interphalangeal joint of finger (principal); W18.30XD Fall on same level, unspecified, subsequent encounter ==

== ENCOUNTER → 2021-11-21 | Outpatient (CLI) | payer OTHER | LOC: M SOG 08:10 | PROVIDERS: ATTEND Physician Assistant | DX: S62.647A Nondisplaced fracture of proximal phalanx of left little finger, initial encounter for closed fracture (principal); S63.295A Dislocation of distal interphalangeal joint of left ring finger, initial encounter; X58.XXXA Exposure to other specified factors, initial encounter; Y92.89 Other specified places as the place of occurrence of the external cause; Y93.9 Activity, unspecified; Y99.9 Unspecified external cause status ==

== ENCOUNTER → 2023-09-02 | Outpatient (CLI) | payer OTHER ==
[~2023-09-02] MED LIST changes: +LEVO1TAB39 PO; -LEVO500T4 PO
== END ==
LOC: M SOG 08:11
PROVIDERS: ATTEND Physician Assistant
DX: S62.647A Nondisplaced fracture of proximal phalanx of left little finger, initial encounter for closed fracture (principal); S63.295A Dislocation of distal interphalangeal joint of left ring finger, initial encounter; Z53.9 Procedure and treatment not carried out, unspecified reason